=== PATIENT | female | born 1940 | race Two or more races ===

== ENCOUNTER 2020-07-11 05:34 | Day surgery (SDC) | payer OTHER ==
[2020-07-11] MEDS ORDERED: MORGIDOX100 MG PO (08:36)
[2020-07-11] MEDS ORDERED: Tylenol #3 PO (08:36)
== END 2020-07-11 13:40 | disposition home or self-care (01) ==
LOC: CIR.AMB 05:34
PROVIDERS: ATTEND Obstetrics & Gynecology
DX: D25.0 Submucous leiomyoma of uterus (principal); N84.0 Polyp of corpus uteri; Z20.828 Contact with and (suspected) exposure to other viral communicable diseases

== ENCOUNTER → 2021-02-26 13:12 | Outpatient (CLI) | payer OTHER ==
[~2021-02-26 13:12] MED LIST: CALCIUM PO; CALTRAT PO; CALTRATE PO; CENTRUM ADULTS1 EACH PO; DULOXETINE HCL60 MG PO; MORGIDOX100 MG PO; OMEGA 3; TRAMADOL HCL50 MG PO; Tylenol #3 PO; VOLTAREN100 GM
== END | disposition home or self-care (01) ==
LOC: EKG 13:12
PROVIDERS: ATTEND Surgery
DX: C20 Malignant neoplasm of rectum (principal); K62.5 Hemorrhage of anus and rectum; I10 Essential (primary) hypertension

== ENCOUNTER 2021-03-07 14:06 | Outpatient (CLI) | payer OTHER ==
[~2021-03-07 14:06] MED LIST changes: -CALCIUM PO; -CALTRATE PO; -TRAMADOL HCL50 MG PO
[2021-04-14] MEDS ORDERED: CALCIUM PO (12:40)
[2021-04-14] MEDS ORDERED: CALTRATE PO (12:40)
== END 2021-03-07 14:09 | disposition home or self-care (01) ==
LOC: LAB 14:06
PROVIDERS: ATTEND Radiology Diagnostic Radiology
DX: K62.5 Hemorrhage of anus and rectum (principal); Z51.81 Encounter for therapeutic drug level monitoring

== ENCOUNTER 2021-03-13 10:12 | Outpatient (CLI) | payer OTHER ==
[2021-04-14] MEDS ORDERED: CALTRATE PO (12:40)
[2021-04-14] MEDS ORDERED: CALCIUM PO (12:40)
== END 2021-03-13 10:26 | disposition home or self-care (01) ==
LOC: MRI 10:12
PROVIDERS: ATTEND Surgery
DX: K62.5 Hemorrhage of anus and rectum (principal); C20 Malignant neoplasm of rectum
CPT/HCPCS: 72197; A9575

== ENCOUNTER 2021-04-16 08:55 | Day surgery (SDC) | payer OTHER ==
[~2021-04-16 08:55] MED LIST changes: +CALCIUM PO; +CALTRATE PO
[2021-04-16] MEDS ORDERED: TRAMADOL HCL50 MG PO (12:43)
== END 2021-04-16 14:45 | disposition home or self-care (01) ==
LOC: CIR.AMB 08:55 → O/R 09:30 → CIR.AMB 09:30
PROVIDERS: ATTEND Surgery
DX: C20 Malignant neoplasm of rectum (principal); Z20.822 Contact with and (suspected) exposure to COVID-19
CPT/HCPCS: 36561; C1751

== ENCOUNTER 2021-05-14 08:43 | Outpatient (CLI) | payer OTHER ==
[~2021-05-14 08:43] MED LIST changes: +TRAMADOL HCL50 MG PO
== END 2021-05-14 08:48 | disposition home or self-care (01) ==
LOC: NUCLEAR 08:43
PROVIDERS: ATTEND Internal Medicine Hematology & Oncology
DX: C20 Malignant neoplasm of rectum (principal)
CPT/HCPCS: 78816; A9552

== ENCOUNTER 2021-10-20 09:00 | Inpatient (IN) | payer OTHER ==
[~2021-10-20] VITALS: Ht 149.9 cm; Wt 44.9 kg
[2021-10-20] MEDS ORDERED: B COMPLEX1 EACH PO (13:03)
[2021-10-20] MEDS ORDERED: NEURIN PO (13:03)
[2021-10-23] MEDS ORDERED: OMEPRAZOLE20 MG (08:02)
[2021-10-23] MEDS ORDERED: DULOXETINE HCL60 MG (08:02)
[2021-10-23] MEDS ORDERED: INTESTINEX680 M1 (08:02)
[2021-10-23] MEDS ORDERED: INTEGRA PLUS C1 EAC1 (08:02)
[2021-10-23] MEDS ORDERED: SYSTANE ULTRA 010 ML (08:02)
[2021-10-23] MEDS ORDERED: ONDANSETRON HCL8 MG (08:03)
[2021-10-23] MEDS ORDERED: RESTASIS1 EACH (08:03)
[2021-10-23] MEDS ORDERED: ABANEU-SL TABL1 EACH (08:04)
[2021-10-23] MEDS ORDERED: OMEGA-3 ACID ETH1 GM (08:05)
[2021-10-25] MEDS ORDERED: PERCOCET 5-3251 EACH PO (11:17)
== END 2021-10-25 15:56 | disposition home or self-care (01) | DRG 330 ==
LOC: SURH 10-22 07:00 → O/R 10-22 08:55 → SURH 10-22 10:00 → SURG 10-22 19:29
PROVIDERS: ADMIT Surgery; ATTEND Surgery
PROC: 0D1E4Z4 Bypass Large Intestine to Cutaneous, Percutaneous Endoscopic Approach (ICD-10-PCS; 2021-10-22)
PROC: 0D1B4Z4 Bypass Ileum to Cutaneous, Percutaneous Endoscopic Approach (ICD-10-PCS; 2021-10-22)
PROC: 0DTP4ZZ Resection of Rectum, Percutaneous Endoscopic Approach (ICD-10-PCS; 2021-10-22)
PROC: 0DJD8ZZ Inspection of Lower Intestinal Tract, Via Natural or Artificial Opening Endoscopic (ICD-10-PCS; principal; 2021-10-22 07:00)
DX: C20 Malignant neoplasm of rectum (principal); K62.5 Hemorrhage of anus and rectum; R59.0 Localized enlarged lymph nodes; I87.2 Venous insufficiency (chronic) (peripheral); Z20.822 Contact with and (suspected) exposure to COVID-19

== ENCOUNTER 2022-01-16 12:45 | Inpatient (IN) | payer OTHER ==
[~2022-01-16] VITALS: Ht 149.9 cm; Wt 52.2 kg
[~2022-01-16 12:45] MED LIST changes: +ABANEU-SL TABL1 EACH; +B COMPLEX1 EACH PO; +DULOXETINE HCL60 MG; +INTEGRA PLUS C1 EAC1; +INTESTINEX680 M1; +NEURIN PO; +OMEGA-3 ACID ETH1 GM; +OMEPRAZOLE20 MG; +ONDANSETRON HCL8 MG; +PERCOCET 5-3251 EACH PO; +RESTASIS1 EACH; +SYSTANE ULTRA 010 ML
[2022-01-16] MEDS ORDERED: CYMBALT PO (16:59)
[2022-01-16] MEDS ORDERED: ZYRTEC10 M3 PO (16:59)
[2022-01-21] MEDS ORDERED: DULOXETINE HCL60 MG (07:51)
[2022-01-21] MEDS ORDERED: FLONASE ALLERG9.9 ML (07:52)
[2022-01-21] MEDS ORDERED: INTESTINEX680 M1 (07:53)
[2022-01-21] MEDS ORDERED: SYSTANE ULTRA 010 ML (07:53)
== END 2022-01-24 00:02 | disposition home or self-care (01) | DRG 331 ==
LOC: O/R 01-21 06:58 → SURH 01-21 06:58 → SURG 01-21 09:40 → O/R 01-21 10:57 → SURH 01-21 12:45
PROVIDERS: ADMIT Surgery; ATTEND Surgery
PROC: 0DQB4ZZ Repair Ileum, Percutaneous Endoscopic Approach (ICD-10-PCS; principal; 2022-01-21 16:45)
DX: Z43.2 Encounter for attention to ileostomy (principal); Z20.822 Contact with and (suspected) exposure to COVID-19